=== PATIENT | male | born 2000 | race Caucasian/White ===

== ENCOUNTER 2024-02-29 17:24 | Observation (INO) ==
[2024-02-29] MEDS ORDERED: Patient's ALLERGY Info needs ENTERED SCH (17:37)
[2024-02-29] MEDS: ONDANSETRON INJ 2 MG/ML 2 ML VIAL IV STA ×2 (17:43→19:14)
[2024-02-29] MEDS: SODIUM CHLORIDE 0.9% 500 ML IV STA (17:43)
[2024-02-29 18:19] LABS: Basophils # (auto) 0.11 K/uL (0.00-0.20); Basophils % (auto) 1.5 %; Eosinophils # (auto) 0.05 K/uL (0.00-0.50); Eosinophils % (auto) 0.7 %; Hematocrit (blood only) 42.1 % (42.0-52.0); Hemoglobin 13.8 g/dl (14.0-18.0); Immature Granulocytes # (auto) 0.03 K/uL (0.01-0.20); Immature Granulocytes % (auto) 0.4 %; Lymphocytes # (auto) 2.36 K/uL (1.20-3.40); Lymphocytes % (auto) 33.2 %; Mean Corpuscular Hemoglobin 25.2 pg (25.0-34.0); Mean Corpuscular Hgb Conc 32.8 g/dL (32.0-36.0); Mean Platelet Volume 9.8 fL (9.4-12.4); Monocytes # (auto) 0.45 K/uL (0.11-0.59); Monocytes % (auto) 6.3 %; Neutrophils % (auto) 57.9 %; Platelet Count 328 K/uL (130-400); RDW Coefficient of Variation 13.2 % (11.5-14.5); RDW Standard Deviation 36.7 fL (36.4-46.3); Red Blood Count 5.47 M/uL (4.70-6.10)
[2024-02-29 18:31] LABS: Albumin Globulin Ratio 1.4 (0.9-2); Albumin Level 5.1 gm/dl (3.4-5.0); BUN Creatinine Ratio 11.4 (10-20); Calcium 10.3 mg/dl (8.6-10.3); Creatinine Clr Calc Pharmacy 75.7 ml/min; Est GFR (African American) 115.4 ml/min; Est GFR (Non-African American) 99.6 ml/min; Globulin 3.6 gm/dl (2.5-4.0); Potassium 3.4 mmol/L (3.5-5.1); Total Protein 8.7 gm/dl (6.0-8.3)
--- NOTE | 2024-02-29 19:02 | Emergency Department Note ---
Impression & Plan Hematemesis, Vomiting, Overdose, Upper GI bleed ED Provider Note NAME: LUIS QUIROZ AGE: 23 SEX: M : 2000 ARRIVES VIA: Walk-In INFORMANT: Patient, ED PROVIDER(S): Lex Benjamin DO CHIEF COMPLAINT: Hematemesis HPI: The patient is a 23-year-old male who presented to the emergency department for an evaluation of hematemesis. The patient's been vomiting through the entire day. He started noticing dark blood. The patient has been having nausea vomiting as well as upper abdominal pain throughout the entire day. The patient denies any suicidal homicidal ideation. He denies having any other coingestions. The patient states he was using a recreational drug called kratom throughout the day yesterday. ROS: See above HPI for pertinent positives & negatives. A total of 10 systems reviewed and were otherwise negative. PAST MEDICAL HISTORY: See Below PAST SURGICAL HISTORY: See Below FAMILY HISTORY: See Below SOCIAL HISTORY: See Below HOME MEDICATIONS: See Below ALLERGIES: See Below VITALS: See Below PHYSICAL EXAMINATION: GENERAL: The patient is awake and alert. He is very anxious. EYES: The conjunctivae are clear. The pupils are round and reactive. EARS, NOSE, MOUTH AND THROAT: The nose is without any evidence of any deformity. NECK: The neck is nontender and supple. RESPIRATORY: Normal respiratory effort is noted there is no evidence of wheezing rhonchi or rales CARDIOVASCULAR: Regular rate and rhythm noted there no murmurs rubs or gallops normal S1 normal S2. GASTROINTESTINAL: The abdomen is soft. Abdomen is nontender. MUSCULOSKELETAL/EXTREMITIES: There is no evidence of gross deformity full range of motion is noted in the hips and shoulders. SKIN: There is no obvious evidence of any rash. There are no petechiae, pallor or cyanosis noted. NEUROLOGIC: Patient is awake alert and oriented x3 strength is symmetric patellar reflexes are 2+ bilaterally MEDICAL DECISION MAKING: The patient is a 23-year-old male who presented to the emergency department for an evaluation of nausea and vomiting. The patient was having intractable nausea vomiting. He also started having hematemesis. The patient was evaluated multiple times. He was treated with multiple antiemetics and IV fluids. He was also treated with Protonix as well as Pepcid. He does admit to taking some sort of recreational drug which I think may have caused some of the symptoms. Initially he was denying any suicidal homicidal ideation. He did admit to nursing that he wanted to take the medication to try to get away from things. I discussed the patient's laboratory and radiographic studies with him. I discussed his condition with the on-call [facility] hospitalist. They have agreed to evaluate the patient in the emergency department for further management and disposition. Triage Nursing notes reviewed. Prior medical records reviewed Vital Signs: reviewed and remarkable for no significant abnormalities Differential diagnosis: Gastroenteritis, food borne illness, infections, appendicitis, diverticulitis, inflammatory bowel disease, obstruction, GI bleed, biliary pathology, volvulus, as well as other pathologies. ER treatment provided: See below Diagnostics interpreted by me: ECG: None Cardiac Monitoring: An order was placed for continuous cardiac monitoring. The monitor shows a rate of 83 bpm with sinus rhythm. Laboratory studies: As stated above and show below. Imaging studies: See below. Radiographic imaging was reviewed by myself Consultation(s): I discussed this case with Dr. Rodriguez who is on-call for the [facility] group. Past Med/Surg History Problem List (Updated 02/29/24 @ 23:44 by Lex Benjamin DO) Hematemesis (Acute) Upper GI bleed (Acute) Overdose (Acute) Vomiting (Acute) Social History Smoking Status: Current every day smoker Tobacco Type: Cigarettes Preferred Language: Turkish Feels Safe at Home: Yes Allergies Allergies Allergy/AdvReac Type Severity Reaction Status Date / Time No Known Allergies Allergy Verified 02/29/24 22:35 Results & Data (ED) Vital Signs Vital Signs - 24 hr 02/29/24 17:37 02/29/24 20:14 Temperature 36.9 C Temperature Source Temporal Artery Scan Pulse Rate 110 H Pulse Rate [Right Finger] 99 H Respiratory Rate 25 H 22 Respiratory Effort / Characteristics Non-Labored Spontaneous Respiratory Depth Normal Blood Pressure 134/85 Blood Pressure [Right Arm] 148/82 H Blood Pressure Mean 101 Blood Pressure Mean [Right Arm] 104 Pulse Oximetry 97 100 Oxygen Delivery Method Room Air Room Air Sepsis Recent Fever Within 48 Hours No Sepsis New/Unexplained Change in Mental Status No Sepsis Action Taken by Nursing No Action Required Home Medications Current Medication List: was personally reviewed by me Laboratory Data Attestation: I reviewed the patient's lab results. 02/29/24 17:45 02/29/24 17:45 Lab Results 02/29/24 02/29/24 02/29/24 Range/Units 17:45 19:01 20:05 WBC 7.10 (4.8-10.8) K/ul RBC 5.47 (4.70-6.10) M/uL Hgb 13.8 L (14.0-18.0) g/dl Hct 42.1 (42.0-52.0) % MCV 77.0 L (80.0-100.0) fL MCH 25.2 (25.0-34.0) pg MCHC 32.8 (32.0-36.0) g/dL RDW Std Deviation 36.7 (36.4-46.3) fL RDW Coeff of Terry 13.2 (11.5-14.5) % Plt Count 328 (130-400) K/uL MPV 9.8 (9.4-12.4) fL Immature Gran % (Auto) 0.4 % Neut % (Auto) 57.9 % Lymph % (Auto) 33.2 % [place] % (Auto) 6.3 % Eos % (Auto) 0.7 % Baso % (Auto) 1.5 % Neut # (Auto) 4.10 (1.40-6.50) K/uL Lymph # (Auto) 2.36 (1.20-3.40) K/uL [place] # (Auto) 0.45 (0.11-0.59) K/uL Eos # (Auto) 0.05 (0.00-0.50) K/uL Baso # (Auto) 0.11 (0.00-0.20) K/uL Immature Gran # (Auto) 0.03 (0.01-0.20) K/uL PT 12.5 H (9.0-12.0) Seconds INR 1.2 H (0.9-1.1) APTT 25 (21-31) Seconds PTT Ratio 0.9 Sodium 139 (136-145) mmol/L Potassium 3.4 L (3.5-5.1) mmol/L Chloride 101 (98-107) mmol/L Carbon Dioxide 19 L (21-32) mmol/L Anion Gap 19 H (3-11) BUN 12 (6-23) mg/dl Creatinine 1.05 (0.6-1.4) mg/dl Est Cr Clr Drug Dosing 75.7 ml/min Est GFR ( Amer) 115.4 ml/min Est GFR (Non-Af Amer) 99.6 ml/min BUN/Creatinine Ratio 11.4 (10-20) Glucose 152 H (70-99(Fasting)) mg/dl Calcium 10.3 (8.6-10.3) mg/dl Total Bilirubin 1.0 (0.2-1.0) mg/dl AST 40 H (13-39) U/L ALT 69 H (7-52) U/L Alkaline Phosphatase 53 (34-104) U/L Total Protein 8.7 H (6.0-8.3) gm/dl Albumin 5.1 H (3.4-5.0) gm/dl Globulin 3.6 (2.5-4.0) gm/dl Albumin/Globulin Ratio 1.4 (0.9-2) Lipase 16 (11-82) U/L Urine Color Urine Appearance (Clear) Urine pH (4.5-7.5) Ur Specific [place] (1.000-1.030) Urine Protein (Negative) Urine Glucose (UA) (Negative) Urine Ketones (Negative) Urine Blood (Negative) Urine Nitrite (Negative) Urine Bilirubin (Negative) Urine Urobilinogen (Negative) Ur Leukocyte Esterase (Negative) Urine WBC (Auto) (0-5) /hpf Urine RBC (Auto) (0-2) /hpf U Hyaline Cast (Auto) (0-2) /lpf U Epithel Cells (Auto) (0-2) /hpf Urine Bacteria (Auto) (None Seen) Gastric Fluid pH 1 Gastric Occult Blood Positive A (Negative) Salicylates < 3.0 L (3.0-30) mg/dl Urine Opiates Screen (Neg) Ur Methadone, Qual (Neg) Urine Fentanyl Screen (Neg) Acetaminophen < 3 L (10-30) ug/ml Urine Barbiturates (Neg) Ur Phencyclidine (PCP) (Neg) U Amphetamin/Meth Scrn (Neg) MDMA (Ecstasy) Screen (Neg) U Benzodiazepines Scrn (Neg) Ur Cocaine Metabolite (Neg) U Marijuana (THC) Screen (Neg) Ethyl Alcohol mg/dL < 10.0 (<10.0) mg/dl 02/29/24 Range/Units 20:36 WBC (4.8-10.8) K/ul RBC (4.70-6.10) M/uL Hgb (14.0-18.0) g/dl Hct (42.0-52.0) % MCV (80.0-100.0) fL MCH (25.0-34.0) pg MCHC (32.0-36.0) g/dL RDW Std Deviation (36.4-46.3) fL RDW Coeff of Terry (11.5-14.5) % Plt Count (130-400) K/uL MPV (9.4-12.4) fL Immature Gran % (Auto) % Neut % (Auto) % Lymph % (Auto) % [place] % (Auto) % Eos % (Auto) % Baso % (Auto) % Neut # (Auto) (1.40-6.50) K/uL Lymph # (Auto) (1.20-3.40) K/uL [place] # (Auto) (0.11-0.59) K/uL Eos # (Auto) (0.00-0.50) K/uL Baso # (Auto) (0.00-0.20) K/uL Immature Gran # (Auto) (0.01-0.20) K/uL PT (9.0-12.0) Seconds INR (0.9-1.1) APTT (21-31) Seconds PTT Ratio Sodium (136-145) mmol/L Potassium (3.5-5.1) mmol/L Chloride (98-107) mmol/L Carbon Dioxide (21-32) mmol/L Anion Gap (3-11) BUN (6-23) mg/dl Creatinine (0.6-1.4) mg/dl Est Cr Clr Drug Dosing ml/min Est GFR ( Amer) ml/min Est GFR (Non-Af Amer) ml/min BUN/Creatinine Ratio (10-20) Glucose (70-99(Fasting)) mg/dl Calcium (8.6-10.3) mg/dl Total Bilirubin (0.2-1.0) mg/dl AST (13-39) U/L ALT (7-52) U/L Alkaline Phosphatase (34-104) U/L Total Protein (6.0-8.3) gm/dl Albumin (3.4-5.0) gm/dl Globulin (2.5-4.0) gm/dl Albumin/Globulin Ratio (0.9-2) Lipase (11-82) U/L Urine Color Yellow Urine Appearance Clear (Clear) Urine pH 8.0 H (4.5-7.5) Ur Specific [place] > 1.045 H (1.000-1.030) Urine Protein Trace H (Negative) Urine Glucose (UA) Negative (Negative) Urine Ketones 3+ H (Negative) Urine Blood Negative (Negative) Urine Nitrite Negative (Negative) Urine Bilirubin Negative (Negative) Urine Urobilinogen Negative (Negative) Ur Leukocyte Esterase Negative (Negative) Urine WBC (Auto) 0-5 (0-5) /hpf Urine RBC (Auto) 0-2 (0-2) /hpf U Hyaline Cast (Auto) 0-2 (0-2) /lpf U Epithel Cells (Auto) 0-2 (0-2) /hpf Urine Bacteria (Auto) None Seen (None Seen) Gastric Fluid pH Gastric Occult Blood (Negative) Salicylates (3.0-30) mg/dl Urine Opiates Screen Neg (Neg) Ur Methadone, Qual Neg (Neg) Urine Fentanyl Screen Neg (Neg) Acetaminophen (10-30) ug/ml Urine Barbiturates Neg (Neg) Ur Phencyclidine (PCP) Neg (Neg) U Amphetamin/Meth Scrn Neg (Neg) MDMA (Ecstasy) Screen Neg (Neg) U Benzodiazepines Scrn Neg (Neg) Ur Cocaine Metabolite Neg (Neg) U Marijuana (THC) Screen Pos H (Neg) Ethyl Alcohol mg/dL (<10.0) mg/dl Administered Medications Parenteral Electrolytes (Plasma-Lyte A Ph 7.4) 1,000 mls @ 90 mls/hr IV .Q11H7M BUTCH Stop: 03/01/24 20:13 Last Admin: 02/29/24 22:19 Dose: 90 mls/hr Documented By: AVM Discontinued Medications Sodium Chloride (Nss) 500 mls @ 999 mls/hr IV .Q31M STA Stop: 02/29/24 18:11 Last Infusion: 02/29/24 18:59 Dose: Infused Documented By: Admin: 02/29/24 17:43 Dose: 999 mls/hr Documented By: NANCY Pantoprazole Sodium 40 mg/ (Syringe) 10 mls @ 5 mls/min IV NOW ONE Stop: 02/29/24 18:52 Last Admin: 02/29/24 19:15 Dose: 5 mls/min Documented By: GRIS Famotidine (Pepcid 20mg Iv Push) 20 mg in 5 mls @ 2.5 mls/min IV NOW STA Stop: 02/29/24 18:52 Last Admin: 02/29/24 19:15 Dose: 2.5 mls/min Documented By: GRIS Sodium Chloride (Nss) 1,000 mls @ 999 mls/hr IV .Q1H1M BUTCH Stop: 02/29/24 21:00 Last Admin: 02/29/24 21:29 Dose: 999 mls/hr Documented By: Infusion: 02/29/24 21:28 Dose: Infused Documented By: Admin: 02/29/24 19:15 Dose: 999 mls/hr Documented By: GRIS Promethazine HCl (Phenergan) 12.5 mg in 50.5 mls @ 202 mls/hr IV NOW STA Stop: 02/29/24 20:59 Last Infusion: 02/29/24 21:44 Dose: Infused Documented By: Admin: 02/29/24 21:28 Dose: 202 mls/hr Documented By: BENJAMIN Ioversol (Optiray 320 100ml) 95 ml IV ONCE ONE Stop: 02/29/24 19:49 Last Admin: 02/29/24 19:48 Dose: 95 ml Documented By: SYLWIA Ondansetron HCl (Ondansetron Inj 2 Mg/Ml 2 Ml Vial) 4 mg IV NOW STA Stop: 02/29/24 17:42 Last Admin: 02/29/24 17:43 Dose: 4 mg Documented By: NANCY Ondansetron HCl (Ondansetron Inj 2 Mg/Ml 2 Ml Vial) 4 mg IV NOW STA Stop: 02/29/24 18:52 Last Admin: 02/29/24 19:14 Dose: 4 mg Documented By: GRIS Imaging Data Attestation: I personally reviewed and interpreted this imaging study as follows: My Impression: CT of the abdomen and pelvis was obtained in the emergency department. My interpretation is no free air or signs of bowel obstruction, final report below. Radiologist's Impression: Abdomen/Pelvis CT 02/29/24 18:51 Exam(s): CT ABDOMEN + PELVIS With Contrast IV Amt: 95ml EXAM: CT Abdomen and Pelvis With Intravenous Contrast CLINICAL HISTORY: Reason for exam: vomiting blood. TECHNIQUE: Axial computed tomography images of the abdomen and pelvis with intravenous contrast. CTDI is 11 mGy and DLP is 549.98 mGy-cm. Automated exposure control was utilized for the study. A dose lowering technique was utilized adhering to the principles of ALARA. CONTRAST: Patient received 95ml of IV contrast COMPARISON: None FINDINGS: Lung bases: Unremarkable. No mass. No consolidation. ABDOMEN: Liver: Unremarkable. No mass. Gallbladder and bile ducts: Unremarkable. No calcified stones. No ductal dilation. Pancreas: Unremarkable. No mass. No ductal dilation. Spleen: Unremarkable. No splenomegaly. Adrenals: Unremarkable. No mass. Kidneys and ureters: Unremarkable. No hydronephrosis or obstructing ureteral stone. Stomach and bowel: Mild prominence of the caro of the colon may be secondary to underdistention. Colitis is not excluded. Evaluation of the stomach is limited by under distention. No small bowel traction. PELVIS: Appendix: Normal appendix. Bladder: Unremarkable. No mass. Reproductive: Unremarkable as visualized. ABDOMEN and PELVIS: Intraperitoneal space: Unremarkable. No free air. No significant fluid collection. Bones/joints: No acute fracture. No dislocation. Soft tissues: Unremarkable. Vasculature: Unremarkable. No abdominal aortic aneurysm. Lymph nodes: Unremarkable. No enlarged lymph nodes. IMPRESSION: Mild prominence of the caro of the colon may be secondary to underdistention. Colitis is not excluded. Electronically signed by: Maribell Hernandez M.D. 02/29/24 20:[address] 02/29/24 18:51 Exam(s): CT CHEST With Contrast IV Amt: 95ml EXAM: CT Chest With Intravenous Contrast CLINICAL HISTORY: Reason for exam: vomiting blood. TECHNIQUE: Axial computed tomography images of the chest with intravenous contrast. CTDI is 11.31 mGy and DLP is 467.16 mGy-cm. Automated exposure control was utilized for the study. A dose lowering technique was utilized adhering to the principles of ALARA. CONTRAST: Patient received 95ml of IV contrast COMPARISON: None FINDINGS: Lungs: Unremarkable. No mass. No consolidation. Pleural space: Unremarkable. No pneumothorax. No significant effusion. Heart: Unremarkable. No cardiomegaly. No significant pericardial effusion. No significant coronary artery calcifications. Bones/joints: Unremarkable. No acute fracture. No dislocation. Soft tissues: Unremarkable. Vasculature: Unremarkable. No thoracic aortic aneurysm. Lymph nodes: Unremarkable. No enlarged lymph nodes. IMPRESSION: Normal chest CT. Electronically signed by: Maribell Hernandez M.D. 02/29/24 20:36 PM Discharge Plan Visit Data Chief Complaint: Vomiting Stated Complaint: VOMITING BLOOD, LETHARGIC, ED Provider: Lex Benjamin Discharge Problem: Hematemesis, Vomiting, Overdose, Upper GI bleed Patient Disposition: Admitted As Inpatient Discharge Instructions Interventions: ED Discharge Assessment Last Done: 02/29/24 23:21 Discharge Problem: Hematemesis Qualifiers: Nausea presence: with nausea Qualified Code(s): K92.0 - Hematemesis Vomiting Qualifiers: Vomiting type: unspecified Nausea presence: with nausea Qualified Code(s): R 11.2 - Nausea with vomiting, unspecified Overdose Qualifiers: Encounter type: initial encounter Injury intent: undetermined intent Qualified Code(s): T50.904A - Poisoning by unspecified drugs, medicaments and biological substances, undetermined, initial encounter
[2024-02-29] MEDS: SODIUM CHLORIDE 0.9% 1,000 ML IV SCH (19:15)
[2024-02-29] MEDS: PANTOprazole 40 MG in SYRINGE 0 ML IV ONE (19:15)
[2024-02-29] MEDS: FAMOTIDINE 20MG IV PUSH 20 MG/5 ML SYR IV STA (19:15)
[2024-02-29 19:29] LABS: Gastric Occult Blood Positive (Negative); pH Gastric Fluid 1
[2024-02-29 19:29] LABS: INR 1.2 (0.9-1.1); Partial Thromboplastin Ratio 0.9; Partial Thromboplastin Time 25 Seconds (21-31); Prothrombin Time 12.5 Seconds (9.0-12.0)
[2024-02-29 19:48] LABS: Acetaminophen < 3 ug/ml (10-30); Salicylate < 3.0 mg/dl (3.0-30)
[2024-02-29] MEDS: OPTIRAY 320 100ml IV ONE (19:48)
--- NOTE | 2024-02-29 20:37 | CT Scan Report ---
Exam(s): CT CHEST With Contrast IV Amt: 95ml EXAM: CT Chest With Intravenous Contrast CLINICAL HISTORY: Reason for exam: vomiting blood. TECHNIQUE: Axial computed tomography images of the chest with intravenous contrast. CTDI is 11.31 mGy and DLP is 467.16 mGy-cm. Automated exposure control was utilized for the study. A dose lowering technique was utilized adhering to the principles of ALARA. CONTRAST: Patient received 95ml of IV contrast COMPARISON: None FINDINGS: Lungs: Unremarkable. No mass. No consolidation. Pleural space: Unremarkable. No pneumothorax. No significant effusion. Heart: Unremarkable. No cardiomegaly. No significant pericardial effusion. No significant coronary artery calcifications. Bones/joints: Unremarkable. No acute fracture. No dislocation. Soft tissues: Unremarkable. Vasculature: Unremarkable. No thoracic aortic aneurysm. Lymph nodes: Unremarkable. No enlarged lymph nodes. IMPRESSION: Normal chest CT. Electronically signed by: Maribell Hernandez M.D. 02/29/24 20:36 PM
--- NOTE | 2024-02-29 20:39 | CT Scan Report ---
Exam(s): CT ABDOMEN + PELVIS With Contrast IV Amt: 95ml EXAM: CT Abdomen and Pelvis With Intravenous Contrast CLINICAL HISTORY: Reason for exam: vomiting blood. TECHNIQUE: Axial computed tomography images of the abdomen and pelvis with intravenous contrast. CTDI is 11 mGy and DLP is 549.98 mGy-cm. Automated exposure control was utilized for the study. A dose lowering technique was utilized adhering to the principles of ALARA. CONTRAST: Patient received 95ml of IV contrast COMPARISON: None FINDINGS: Lung bases: Unremarkable. No mass. No consolidation. ABDOMEN: Liver: Unremarkable. No mass. Gallbladder and bile ducts: Unremarkable. No calcified stones. No ductal dilation. Pancreas: Unremarkable. No mass. No ductal dilation. Spleen: Unremarkable. No splenomegaly. Adrenals: Unremarkable. No mass. Kidneys and ureters: Unremarkable. No hydronephrosis or obstructing ureteral stone. Stomach and bowel: Mild prominence of the caro of the colon may be secondary to underdistention. Colitis is not excluded. Evaluation of the stomach is limited by under distention. No small bowel traction. PELVIS: Appendix: Normal appendix. Bladder: Unremarkable. No mass. Reproductive: Unremarkable as visualized. ABDOMEN and PELVIS: Intraperitoneal space: Unremarkable. No free air. No significant fluid collection. Bones/joints: No acute fracture. No dislocation. Soft tissues: Unremarkable. Vasculature: Unremarkable. No abdominal aortic aneurysm. Lymph nodes: Unremarkable. No enlarged lymph nodes. IMPRESSION: Mild prominence of the caro of the colon may be secondary to underdistention. Colitis is not excluded. Electronically signed by: Maribell Hernandez M.D. 02/29/24 20:38 PM
--- NOTE | 2024-02-29 20:57 | History & Physical Report ---
Date of Service February 29, 2024 Assessment & Plan (1) Overdose: Plan: Kratom overdose; patient reports ingesting creatinine (5 teaspoons) the morning of 02/28 Vomiting started shortly after, including hemoptysis Patient denies suicidal ideations or thoughts of self-harm; reports it was recreational One prior instance of kratom use 2 weeks ago, which also led to nausea/vomiting Chest and A/P CT without acute findings Poison control consulted in the ED Supportive care Seizure precautions Ativan as needed for agitation; buprenorphine not indicated at this time IV acetaminophen as needed for pain/fever IV antiemetics as needed for nausea/vomiting Anion gap elevated at 19; VBG and lactate ordered, pending A.m. CBC, BMP, mag (2) Upper GI bleed: Plan: Coffee-ground emesis Gastric occult blood (positive) arrival Continue Protonix 40 mg IV BID Strict n.p.o. for now Hgb 13.8 on arrival IVF maintenance with Plasma-Lyte at 90mL/hr x 2 L Recheck a.m. labs (3) Vomiting: Plan Disposition: Admit to [facility] telemetry Full code Keep n.p.o. for now, then advance to clear liquid diet as tolerated VTE PPx: Hold chemical DVT PPx in the setting of GI bleed History of Present Illness Chief Complaint: Vomiting, kratom overdose Primary Care Provider: NO PCP Calista is a 23-year-old male without significant PMH. He presented on 02/28 for vomiting following a reported kratom overdose. History difficult to obtain, as patient is not the best historian at this time; no family at bedside. 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 He reports that he had kratom this morning (around 5 teaspoons), and started vomiting around 10 AM. He believes that there was blood in his vomit as well as coffee-ground emesis; he reports that he "taste" blood in his vomit. He also reports that his body is "flaming". When asked why he took the kratom, he reports for recreational purposes. He denies thoughts of self-harm, suicidal ideations, or thoughts of harming others. This was the second time he is taking kratom, the first time was 2 weeks ago, and he had similar episode of vomiting after taking. He does report he has been under significant stress, but denies any new life stressors. He also reports that he smokes marijuana, but denies all other recreational drug use. No history of GI bleeds to his knowledge. He denies cigarettes, tobacco use, or recent alcohol use. He does not want his parents to know that he is in the hospital. Patient is hypertensive at 148/82 and mildly tachycardic around 100 bpm at time of admission; vitals otherwise stable. ED course: NSS 1000 mL IV x 2 Pepcid 20 mg IV Protonix 40 mg IV Zofran 4 mg IV x 2 Phenergan 12.5 mg IV ROS: Patient endorses leg pain, abdominal pain, vomiting, and hemoptysis. Patient denies fever, chills, night-sweats, chest pain, SOB, or blood in the urine/stool. Spoke on the phone with [facility] control [place]. At this time, recommend supportive care and benzodiazepines (such as Ativan) for symptoms of agitation. Please see Dr. Rodriguez's attestation for any changes to treatment plan overnight. Allergies Allergy/AdvReac Type Severity Reaction Status Date / Time No Known Allergies Allergy Verified 02/29/24 22:35 Past Med/Surg History Problem List Hematemesis (Acute) Upper GI bleed (Acute) Overdose (Acute) Vomiting (Acute) Social History Smoking Status: Never smoker Tobacco Type: Cigarettes Hx Alcohol Use: No Hx Substance Use: Yes Last Used Substance: Unknown Preferred Language: Azeri [employer] Director Required: No Beliefs That Will Affect Care: None Current Living Situation: Alone Current Living Situation Comment: Apartment at [facility] Other Information That Helps Us Care for You: No Feels Safe at Home: Yes Safety Concerns: Feels Safe At This Time Assistive Devices: None Review of Systems Review of Systems: See HPI above Physical Exam Physical Exam: General: Acute physical distress; tremors; agitated; anxious; non-toxic appearing; cooperative; SpO2 100% on RA HEENT: normocephalic, atraumatic; no scleral icterus; PERRLA; vision and hearing grossly intact Neck: supple; no lymphadenopathy; trachea midline Skin: warm, dry without signs of tenting; no cyanosis; no rashes, bruising, lesions, or erythema noted CV: chest wall NTP; RRR; S1/S2 normal; no murmurs/rubs/gallops; pulses intact and symmetric at radial, DP, and PT Lungs: no acute respiratory distress; symmetrical chest wall expansion; clear breath sounds across all lung galdamez w/o adventitious sounds; no wheezing ABD: Soft; TTP in all 4 quadrants; BS present; no rebound/guarding; no distention MSK: no tics or fasciculations; no edema noted in the LEs b/l, nonerythematous Neuro: A&Ox3; fluent speech; no focal deficits; sensation intact in the LEs bilaterally Results & Data Results & Data Vital Signs (Past 12 Hours) Vital Signs Temp Pulse Pulse Resp BP BP Pulse Ox 02/29/24 20:14 99 H 22 148/82 H 100 02/29/24 17:37 36.9 C 110 H 25 H 134/85 97 O2 Del Method 02/29/24 20:14 Room Air 02/29/24 17:37 Room Air Laboratory Results Abnormal lab results 02/29/24 02/29/24 Range/Units 17:45 19:01 Hgb 13.8 L (14.0-18.0) g/dl MCV 77.0 L (80.0-100.0) fL PT 12.5 H (9.0-12.0) Seconds INR 1.2 H (0.9-1.1) Potassium 3.4 L (3.5-5.1) mmol/L Carbon Dioxide 19 L (21-32) mmol/L Anion Gap 19 H (3-11) Glucose 152 H (70-99(Fasting)) mg/dl AST 40 H (13-39) U/L ALT 69 H (7-52) U/L Total Protein 8.7 H (6.0-8.3) gm/dl Albumin 5.1 H (3.4-5.0) gm/dl Gastric Occult Blood Positive A (Negative) Salicylates < 3.0 L (3.0-30) mg/dl Acetaminophen < 3 L (10-30) ug/ml Diagnostic Findings Abdomen/Pelvis CT 02/29/24 18:51 Exam(s): CT ABDOMEN + PELVIS With Contrast IV Amt: 95ml EXAM: CT Abdomen and Pelvis With Intravenous Contrast CLINICAL HISTORY: Reason for exam: vomiting blood. TECHNIQUE: Axial computed tomography images of the abdomen and pelvis with intravenous contrast. CTDI is 11 mGy and DLP is 549.98 mGy-cm. Automated exposure control was utilized for the study. A dose lowering technique was utilized adhering to the principles of ALARA. CONTRAST: Patient received 95ml of IV contrast COMPARISON: None FINDINGS: Lung bases: Unremarkable. No mass. No consolidation. ABDOMEN: Liver: Unremarkable. No mass. Gallbladder and bile ducts: Unremarkable. No calcified stones. No ductal dilation. Pancreas: Unremarkable. No mass. No ductal dilation. Spleen: Unremarkable. No splenomegaly. Adrenals: Unremarkable. No mass. Kidneys and ureters: Unremarkable. No hydronephrosis or obstructing ureteral stone. Stomach and bowel: Mild prominence of the caro of the colon may be secondary to underdistention. Colitis is not excluded. Evaluation of the stomach is limited by under distention. No small bowel traction. PELVIS: Appendix: Normal appendix. Bladder: Unremarkable. No mass. Reproductive: Unremarkable as visualized. ABDOMEN and PELVIS: Intraperitoneal space: Unremarkable. No free air. No significant fluid collection. Bones/joints: No acute fracture. No dislocation. Soft tissues: Unremarkable. Vasculature: Unremarkable. No abdominal aortic aneurysm. Lymph nodes: Unremarkable. No enlarged lymph nodes. IMPRESSION: Mild prominence of the caro of the colon may be secondary to underdistention. Colitis is not excluded. Electronically signed by: Maribell Hernandez M.D. 02/29/24 20:[address] 02/29/24 18:51 Exam(s): CT CHEST With Contrast IV Amt: 95ml EXAM: CT Chest With Intravenous Contrast CLINICAL HISTORY: Reason for exam: vomiting blood. TECHNIQUE: Axial computed tomography images of the chest with intravenous contrast. CTDI is 11.31 mGy and DLP is 467.16 mGy-cm. Automated exposure control was utilized for the study. A dose lowering technique was utilized adhering to the principles of ALARA. CONTRAST: Patient received 95ml of IV contrast COMPARISON: None FINDINGS: Lungs: Unremarkable. No mass. No consolidation. Pleural space: Unremarkable. No pneumothorax. No significant effusion. Heart: Unremarkable. No cardiomegaly. No significant pericardial effusion. No significant coronary artery calcifications. Bones/joints: Unremarkable. No acute fracture. No dislocation. Soft tissues: Unremarkable. Vasculature: Unremarkable. No thoracic aortic aneurysm. Lymph nodes: Unremarkable. No enlarged lymph nodes. IMPRESSION: Normal chest CT. Electronically signed by: Maribell Hernandez M.D. 02/29/24 20:36 PM Code Status & VTE Plan Code Status Full code VTE Prophylaxis Plan VTE Prophylaxis will be ordered: Yes Supervising Physician Co-Signing Physician Notes Patient seen and examined, chart reviewed, case discussed with LYNSEY Odell and I agree with the assessment and plan as above. In brief, patient is a 23yo male presenting after Kratom overdose (Kratom is an herbal substance that can produce an opioid and stimulant like effects that is available over the counter). He reports severe nausea and vomiting with possible blood and coffee ground substance in vomitus. On exam patient is resting comfortably, no acute complaints. He reports that his nausea is improving and feels overall much better than before Skin - intact, no rash HEENT - MMM, Neck supple Heart - +S1/S2, regular, no m/r/g Lungs - CTA, no rales/rhonchi Abd - +BS, soft, NT/ND Ext - warm, well perfused Labs and images reviewed. AST=40, ALT=69 Assessment/Plan - Kratom use resulting in nausea and vomiting, possible UGIB -Continue supportive care - IVF, anti-emetics -Ativan as needed for agitation -Protonix 40mg IV BID -Repeat LFTs in AM - mildly elevated AST/ALT -Remainder as above PG Care Time/CCT Total # of Minutes Spent Total Time Spent with Patient: Total time spent is greater than 50% in coordination of care (as documented) at patient's floor/unit and/or counseling patient: [place] [address] INT INP/OBS CARE 2/55MIN Patient Type New Medical Decision Making Moderate Complexity Diagnoses Overdose T50.901A Upper GI bleed K92.2 Vomiting R11.10
[2024-02-29] MEDS: PROMETHAZINE 12.5 MG/50.5 ML BAG IV STA (21:28)
[2024-02-29 22:07] LABS: Appearance Urine Clear (Clear); Bacteria Urine Automated None Seen (None Seen); Bilirubin Urine Negative (Negative); Blood Urine Negative (Negative); Cast Urine Automated 0-2 /lpf (0-2); Color Urine Yellow; Epithelial Cell Urine Auto 0-2 /hpf (0-2); Glucose Urine UA Negative (Negative); Ketones Urine 3+ (Negative); Leukocyte Esterase Urine Negative (Negative); Nitrite Urine Negative (Negative); Protein Urine Trace (Negative); RBC Urine Automated 0-2 /hpf (0-2); Specific Gravity Urine > 1.045 (1.000-1.030); Urobilinogen Urine Negative (Negative); WBC Urine Automated 0-5 /hpf (0-5)
[2024-02-29] MEDS: PLASMA-LYTE A 1,000 ML IV SCH (22:19)
[2024-02-29 22:27] LABS: Amphetamines+Metham, Urine Neg (Neg); Barbiturates, Urine Neg (Neg); Benzodiazepine, Urine Neg (Neg); Cocaine, Urine Neg (Neg); Fentanyl, Urine Neg (Neg); MDMA (Ecstacy), Urine Neg (Neg); Marijuana, Urine Pos (Neg); Methadone, Urine Neg (Neg); Opiate, Urine Neg (Neg); Phencyclidine, Urine Neg (Neg)
[2024-02-29 22:53] LABS: Base Excess VBG 0.1 mEq/L; HCO3 VBG 25 mmol/L; Oxygen Saturation VBG 73.1 %; PCO2 VBG 39 mmHg (38-50); PO2 VBG 43 mmHg; pH VBG 7.41 (7.36-7.41)
[2024-02-29] MEDS ORDERED: ONDANSETRON INJ 2 MG/ML 2 ML VIAL IV PRN (23:36)
[2024-02-29] MEDS ORDERED: ACETAMINOPHEN 1,000 MG/100 ML VIAL IV PRN (23:36)
[2024-02-29] MEDS ORDERED: LORazepam 0.5 MG in SYRINGE 0.25 ML IV PRN (23:36)
[2024-03-01] MEDS ORDERED: ACETAMINOPHEN 10MG/ML Custom 650 MG in EMPTY BAG 0 ML IV PRN (00:03)
[2024-03-01] MEDS: Patient's ALLERGY Info needs ENTERED STA (00:10)
[2024-03-01 02:31] LABS: Magnesium 1.5 mg/dl (1.7-2.4)
[2024-03-01] MEDS: MAGNESIUM SULFATE / D5W 1 GM/100 ML BAG IV SCH (07:05)
[2024-03-01 07:45] LABS: Basophils # (auto) 0.03 K/uL (0.00-0.20); Basophils % (auto) 0.3 %; Eosinophils # (auto) 0.02 K/uL (0.00-0.50); Eosinophils % (auto) 0.2 %; Hematocrit (blood only) 35.7 % (42.0-52.0); Hemoglobin 11.9 g/dl (14.0-18.0); Immature Granulocytes # (auto) 0.05 K/uL (0.01-0.20); Immature Granulocytes % (auto) 0.5 %; Lymphocytes # (auto) 2.12 K/uL (1.20-3.40); Lymphocytes % (auto) 21.7 %; Mean Corpuscular Hemoglobin 25.4 pg (25.0-34.0); Mean Corpuscular Hgb Conc 33.3 g/dL (32.0-36.0); Mean Corpuscular Volume 76.1 fL (80.0-100.0); Mean Platelet Volume 10.2 fL (9.4-12.4); Monocytes # (auto) 0.98 K/uL (0.11-0.59); Neutrophils # (auto) 6.58 K/uL (1.40-6.50); Neutrophils % (auto) 67.3 %; Platelet Count 256 K/uL (130-400); RDW Coefficient of Variation 13.7 % (11.5-14.5); RDW Standard Deviation 37.6 fL (36.4-46.3); Red Blood Count 4.69 M/uL (4.70-6.10); White Blood Count 9.78 K/ul (4.8-10.8)
[2024-03-01 07:47] LABS: BUN Creatinine Ratio 13.5 (10-20); Creatinine Clr Calc Pharmacy 123.4 ml/min; Est GFR (African American) 139.7 ml/min; Est GFR (Non-African American) 120.5 ml/min
[2024-03-01 07:58] VITALS: RESP 17
[2024-03-01] MEDS: PANTOprazole 40 MG in SYRINGE 0 ML IV SCH (09:02)
[2024-03-01 09:10] LABS: Albumin Level 4.1 gm/dl (3.4-5.0); Bilirubin Direct 0.2 mg/dl (0-0.2); Bilirubin,Total 0.8 mg/dl (0.2-1.0)
[2024-03-01 11:47] LABS: Hemoglobin 12.5 g/dl (14.0-18.0)
[2024-03-01 11:52] VITALS: BP 120/79; PULSE 76; TEMP 98.1; O2SAT 100
--- NOTE | 2024-03-01 14:16 | Discharge Summary ---
Discharge Summary Date of Service date of admission - February 29, 2024 date of discharge - March 01, 2024 Principal Dx & Hospital Course #1 = Principal Diagnosis (1) Overdose: Overdose of "Kratom" the morning of 02/29/24 * Vomiting started shortly after, including a limited amount of coffee-ground emesis * Patient denied suicidal ideation or thoughts of self-harm; reports it was recreational CT Chest, abdomen & pelvis without acute findings Poison control was consulted in the ED They advised supportive care & seizure precautions He was admitted for observation purposes especially because of the hematemesis He remained hemodynamically stable Labs remained stable/acceptable He was ultimately resumed on a basic diet - tolerated clears He was seen by psychiatry - felt not to have any suicide risk The Kratom overdose was accidental They counseled him on outpatient services available including the [facility] program He reported having anxiety and sometimes used the Kratom to deal with his anxiety He plans to self-refer for outpatient therapy (2) Upper GI bleed: Coffee-ground emesis seen by patient Initiated on Protonix 40 mg IV BID Initially was NPO Hgb 13.8 on arrival Hospital day #2 - placed on clear liquid diet & tolerated such He reported NO abd pain or recurrent emesis or coffee-ground emesis following admission Discharge Hgb was 12.5 Suspect the coffee-ground emesis was from gastritis or a Eileen-Adrienne Tear Regardless he was asked to continued protonix 40mg daily x 30 days Also asked to take carafate 1gm BID x 7 days Counseled on slowly advancing diet, avoiding etoh, etc. (3) Abnormal LFTs: Mild elevation in LFTs upon admission All LFTs normalized on hospital day #2 Presumably due to the Kratom overdose (4) Lactic acidosis: Peak lactate 2.4 Normalized with supportive care, IV fluids, etc. (5) Hypomagnesemia: presenting level 1.5, normalizing with supplementation (6) Anxiety: Seen by psychiatry while here Deemed not a suicide risk He plans to self-refer to mental health services/counseling as an outpatient Admission HPI Per Admitting Provider Calista is a 23-year-old male without significant PMH. He presented on 02/28 for vomiting following a reported kratom overdose. History difficult to obtain, as patient is not the best historian at this time; no family at bedside. 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 He reports that he had kratom this morning (around 5 teaspoons), and started vomiting around 10 AM. He believes that there was blood in his vomit as well as coffee-ground emesis; he reports that he "taste" blood in his vomit. He also reports that his body is "flaming". When asked why he took the kratom, he reports for recreational purposes. He denies thoughts of self-harm, suicidal ideations, or thoughts of harming others. This was the second time he is taking kratom, the first time was 2 weeks ago, and he had similar episode of vomiting after taking. He does report he has been under significant stress, but denies any new life stressors. He also reports that he smokes marijuana, but denies all other recreational drug use. No history of GI bleeds to his knowledge. He denies cigarettes, tobacco use, or recent alcohol use. He does not want his parents to know that he is in the hospital. Patient is hypertensive at 148/82 and mildly tachycardic around 100 bpm at time of admission; vitals otherwise stable. ED course: NSS 1000 mL IV x 2 Pepcid 20 mg IV Protonix 40 mg IV Zofran 4 mg IV x 2 Phenergan 12.5 mg IV ROS: Patient endorses leg pain, abdominal pain, vomiting, and hemoptysis. Patient denies fever, chills, night-sweats, chest pain, SOB, or blood in the urine/stool. Spoke on the phone with poison control [place]. At this time, recommend supportive care and benzodiazepines (such as Ativan) for symptoms of agitation. Please see Dr. Rodriguez's attestation for any changes to treatment plan overnight. Discharge Exam gen - NAD, looks well mouth - MMM neck - no JVD heart - RRR, s1 s2, no murmur lungs - CTA b/l abd - soft NT ND BS+; no HSM ext - no edema, pulses 2+ b/l neuro - no tremors, no agitation psych - a/o x 3 Discharge Plan Discharge Items Patient Disposition: Home - Self-Care Reason For Visit: KRATOM OVERDOSE Discharge Diagnosis: 1. overdose due to "Kratom" 2. anxiety 3. low magnesium - resolved 4. vomiting - due to #1 5. blood in vomit - could be due to gastritis, a small tear in the esophagus, etc. Resolved. Activity: As commented below Activity Comment: nothing strenuous for 3 days, then gradually resume normal activities Exercise/Sports: Wait until after follow-up appointment Non-emergency contact: Primary Care Provider Call non-emergency contact if: you have any medication questions and your s ymptoms worsen Follow-up/Referrals: [facility] [Outside] (please see [facility] in 48 hours ) Diet: Clear liquid Addtl Attending Provider Instructions: Calista, You were hospitalized after having had an overdose from Kratom. This caused severe vomiting. Some of the vomit contained small amounts of dark material, likely old blood. The blood may have been from an irritated stomach (also known as gastritis) or perhaps a small tear in the esophagus from vomiting. Either way your blood counts have been stable since admission. Kratom overdose can lead to seizures, respiratory depression, confusion, coma, and even . PLEASE DISCONTINUE ALL USE OF KRATOM. 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 Our psychology services saw you in consult for the anxiety. Recommendations - 1. Diet - start with clear liquids (see handout); do this for most of today. Tomorrow, 03/02, you can gradually add in more solids to your diet. BUT GO SLOWLY with this. Avoid fried foods, spicy foods, fast foods. Focus on really good hydration today & tomorrow. 2. NO ALCOHOL for at least 7 days. 3. NO ANTI-inflammatory pills such as aspirin, motrin, ibuprofen, aleve, naprosyn. 4. It is ok to take tylenol [id number] for aches & pains. 5. for your stomach take - * pantoprazole 40mg once daily x 30 days, first dose today * sucralfate 1gram twice daily x 7 days, first dose today 6. please see [facility] in 2 days for a recheck. I would re commend you have a repeat CBC blood count at that time. You will need to call [facility] to schedule this appointment. 7. if possible I would skip classes today and resume classes tomorrow; I have included a note for you for school. You need to rest a bit more today and focus on good hydration. 8. when you see [facility] this week please ask for a referral to mental health services on campus; they will be able to help you with your stress & anxiety. Return to [facility] if - * you have fever over 100 degrees * you have worsening stomach pain, nausea or vomiting * you vomit dark material or have bright red blood in your vomit * you see large amounts of dark or black material in your stools (you may see a little dark material in the next day or two but it should resolve promptly) * you have severe anxiety * you have thoughts of hurting yourself or any one else * any other concerns Pending Studies at Discharge: No Stand-Alone Forms: My [facility], Work/School Release, Smoking Cessation Medications and DC Order Prescriptions: New pantoprazole [Protonix] 40 mg tablet,delayed release (DR/EC) 40 mg PO DAILY Qty: 30 0RF Discharge Orders: Discharge Order (Routine); Ordered 03/01/24 Ordered By: Jimmy Polk/Other Patient Handouts: Clear Liquid Diet Dc Admission Data Admit Date/Time: 02/29/24 21:39 Attending Provider: Jimmy Hooker Admit Provider: Mae Rodriguez Primary Care Provider: PCP,NO Other Providers: Mae Rodriguez Other Interventions: Discharge Summary Assessment (RN) Last Done: 03/01/24 13:05 Hospital Stay Data Consultations Behavioral Health Liaison Diagnostic Imagining Performed Abdomen/Pelvis CT 02/29/24 18:51 Exam(s): CT ABDOMEN + PELVIS With Contrast IV Amt: 95ml EXAM: CT Abdomen and Pelvis With Intravenous Contrast CLINICAL HISTORY: Reason for exam: vomiting blood. TECHNIQUE: Axial computed tomography images of the abdomen and pelvis with intravenous contrast. CTDI is 11 mGy and DLP is 549.98 mGy-cm. Automated exposure control was utilized for the study. A dose lowering technique was utilized adhering to the principles of ALARA. CONTRAST: Patient received 95ml of IV contrast COMPARISON: None FINDINGS: Lung bases: Unremarkable. No mass. No consolidation. ABDOMEN: Liver: Unremarkable. No mass. Gallbladder and bile ducts: Unremarkable. No calcified stones. No ductal dilation. Pancreas: Unremarkable. No mass. No ductal dilation. Spleen: Unremarkable. No splenomegaly. Adrenals: Unremarkable. No mass. Kidneys and ureters: Unremarkable. No hydronephrosis or obstructing ureteral stone. Stomach and bowel: Mild prominence of the caro of the colon may be secondary to underdistention. Colitis is not excluded. Evaluation of the stomach is limited by under distention. No small bowel traction. PELVIS: Appendix: Normal appendix. Bladder: Unremarkable. No mass. Reproductive: Unremarkable as visualized. ABDOMEN and PELVIS: Intraperitoneal space: Unremarkable. No free air. No significant fluid collection. Bones/joints: No acute fracture. No dislocation. Soft tissues: Unremarkable. Vasculature: Unremarkable. No abdominal aortic aneurysm. Lymph nodes: Unremarkable. No enlarged lymph nodes. IMPRESSION: Mild prominence of the caro of the colon may be secondary to underdistention. Colitis is not excluded. Electronically signed by: Maribell Hernandez M.D. 02/29/24 20:[address] 02/29/24 18:51 Exam(s): CT CHEST With Contrast IV Amt: 95ml EXAM: CT Chest With Intravenous Contrast CLINICAL HISTORY: Reason for exam: vomiting blood. TECHNIQUE: Axial computed tomography images of the chest with intravenous contrast. CTDI is 11.31 mGy and DLP is 467.16 mGy-cm. Automated exposure control was utilized for the study. A dose lowering technique was utilized adhering to the principles of ALARA. CONTRAST: Patient received 95ml of IV contrast COMPARISON: None FINDINGS: Lungs: Unremarkable. No mass. No consolidation. Pleural space: Unremarkable. No pneumothorax. No significant effusion. Heart: Unremarkable. No cardiomegaly. No significant pericardial effusion. No significant coronary artery calcifications. Bones/joints: Unremarkable. No acute fracture. No dislocation. Soft tissues: Unremarkable. Vasculature: Unremarkable. No thoracic aortic aneurysm. Lymph nodes: Unremarkable. No enlarged lymph nodes. IMPRESSION: Normal chest CT. Electronically signed by: Maribell Hernandez M.D. 02/29/24 20:36 PM Pending Results Patient Have Any Pending Studies at Discharge: No Discharge Instructions Given to Patient (Per Discharging Provider) Calista, You were hospitalized after having had an overdose from Kratom. This caused severe vomiting. Some of the vomit contained small amounts of dark material, likely old blood. The blood may have been from an irritated stomach (also known as gastritis) or perhaps a small tear in the esophagus from vomiting. Either way your blood counts have been stable since admission. Kratom overdose can lead to seizures, respiratory depression, confusion, coma, and even . PLEASE DISCONTINUE ALL USE OF KRATOM. 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 Our psychology services saw you in consult for the anxiety. Recommendations - 1. Diet - start with clear liquids (see handout); do this for most of today. Tomorrow, 03/02, you can gradually add in more solids to your diet. BUT GO SLOWLY with this. Avoid fried foods, spicy foods, fast foods. Focus on really good hydration today & tomorrow. 2. NO ALCOHOL for at least 7 days. 3. NO ANTI-inflammatory pills such as aspirin, motrin, ibuprofen, aleve, naprosyn. 4. It is ok to take tylenol [id number] for aches & pains. 5. for your stomach take - * pantoprazole 40mg once daily x 30 days, first dose today * sucralfate 1gram twice daily x 7 days, first dose today 6. please see [facility] in 2 days for a recheck. I would recommend you have a repeat CBC blood count at that time. You will need to call [facility] to schedule this appointment. 7. if possible I would skip classes today and resume classes tomorrow; I have included a note for you for school. You need to rest a bit more today and focus on good hydration. 8. when you see [facility] this week please ask for a referral to mental health services on campus; they will be able to help you with your stress & anxiety. Return to [facility] if - * you have fever over 100 degrees * you have worsening stomach pain, nausea or vomiting * you vomit dark material or have bright red blood in your vomit * you see large amounts of dark or black material in your stools (you may see a little dark material in the next day or two but it should resolve promptly) * you have severe anxiety * you have thoughts of hurting yourself or any one else * any other concerns Total Time Total Time Spent Total Time Spent (In Minutes): 40 Coding Level of Care Code 94231 INP/OBS DISCH >30 MIN Diagnoses Overdose T50.904A Encounter type: initial encounter Injury intent: undetermined intent Upper GI bleed K92.2 Abnormal LFTs R79.89 Lactic acidosis E87.20 Hypomagnesemia E83.42 Anxiety F41.9
--- NOTE | 2024-03-02 06:58 | Electrocardiogram Report ---
Test Reason : Blood Pressure : */* mmHG Vent. Rate : 64 BPM Atrial Rate : 64 BPM P-R Int : 146 ms QRS Dur : 94 ms QT Int : 396 ms P-R-T Axes : 51 82 57 degrees QTcB Int : 408 ms Normal sinus rhythm with sinus arrhythmia Normal ECG No previous ECGs available Confirmed by Vinny Putnam ([id number]) on 03/02/2024 6:58:13 AM Referred By: REFERRED SELF Confirmed By: Vinny Putnam
[2024-03-03 11:47] LABS: Marijuana Quant, GCMS Urine 2693 ng/mL (<5)
== END 2024-03-01 14:41 | disposition home or self-care (01) ==
LOC: 2S 17:24 → ED 17:24 → SUATTDRO 21:39 → 2S 23:21